=== PATIENT | male | born 1985 | race Caucasian/White ===

== ENCOUNTER 2018-03-29 13:51 | Emergency (ER) | payer OTHER ==
[2018-03-29 14:29] VITALS: BP 154/78
--- NOTE | 2018-03-29 14:54 | ED Physician Documentation ---
PD HPI MALE - Stated complaint Stated Complaint: MALE - Chief complaint Chief Complaint: Wound - History obtained from History obtained from: Patient - History of Present Illness Timing - onset: Other (He has had irritation just proximal to the glans of the penis for a week. There is some drainage on the left side. No dysuria Or urethral discharge.) Review of Systems Constitutional: denies: Fever, Chills GI: denies: Abdominal Pain, Nausea, Vomiting PD PAST MEDICAL HISTORY - Present Medications Home Medications: Ambulatory Orders Medication Instructions Recorded Confirmed RX: Clotrimazole 1 gm TP TID #2 cream..g. 03/29/18 - Allergies Allergies/Adverse Reactions: Allergies Allergy/AdvReac Type Severity Reaction Status Date / Time No Known Drug Allergies Allergy Verified 03/29/18 14:29 PD ED PE NORMAL - Vitals Vital signs reviewed: Yes - General General: Alert and oriented X 3, No acute distress - Male Male : Other (He has what appears to be balanitis to the Area just proximal to the glans of the penis on the left side. There is a rash on the right side which he says is chronic from an ant bite as a child. No inguinal adenopathy.) - Neuro Neuro: Alert and oriented X 3, Normal speech Results - Vitals Vitals: Vital Signs - 24 hr 03/29/18 14:27 Temperature 36.3 C L Heart Rate 72 Respiratory 18 Rate Blood Pressure 154/78 H O2 Saturation 100 Oxygen O2 Source Room air Departure - Departure Disposition: 01 Home, Self Care Clinical Impression: Balanitis Condition: Good Record reviewed to determine appropriate education?: Yes Instructions: ED Balanitis Prescriptions: RX: Clotrimazole 1 gm TP TID #2 cream..g. Comments: Follow-up with your physician and discuss serologic testing for herpes although I do not think that is what this represents. We will call if gonorrhea or chlamydia tests are positive. Discharge Date/Time: 03/29/18 15:03
== END 2018-03-29 15:03 | disposition home or self-care (01) ==
LOC: ED 13:51
DX: N48.1 Balanitis (principal)
CPT/HCPCS: 87491; 87591; 99282; 99283